=== PATIENT | male | born 2000 | race Caucasian/White ===

== ENCOUNTER 2024-04-19 23:52 | Emergency (ER) | payer OTHER ==
[~2024-04-19] VITALS: Ht 177.8 cm; Wt 88.6 kg
[2024-04-20] MEDS: ketorolac trometh. 30mg/ml inj. IM ONE (00:48)
[2024-04-20] MEDS: ketorolac trometh. 30mg/ml inj. IV ONE (00:49)
[2024-04-20] MEDS ORDERED: METH-798 PO (01:56)
[2024-04-20] MEDS ORDERED: NAPR-56 PO (01:56)
[2024-04-20 02:31] VITALS: BP 124/68; PULSE 72; RESP 16; TEMP 98.5; O2SAT 98
== END 2024-04-20 02:35 | disposition home or self-care (01) ==
LOC: ER 23:53
DX: S40.011A Contusion of right shoulder, initial encounter (principal); Z88.1 Allergy status to other antibiotic agents; V89.2XXA Person injured in unspecified motor-vehicle accident, traffic, initial encounter; Y93.89 Activity, other specified; Y92.89 Other specified places as the place of occurrence of the external cause; Y99.8 Other external cause status
CPT/HCPCS: 72040; 73030; 96374; 99284; J1885